=== PATIENT | female | born 1960 | race Asian ===

== ENCOUNTER 2018-07-30 13:09 | Emergency (ER) | payer MEDICAID ==
[~2018-07-30] VITALS: Ht 162.6 cm; Wt 123.4 kg
[2018-07-30 13:47] LABS: BASOPHILS # (AUTO) 0.04 x10^3/uL (0-0.1); BASOPHILS % (AUTO) 0 % (0-1); EOSINOPHILS # (AUTO) 0.26 x10^3/uL (0-0.4); EOSINOPHILS % (AUTO) 3 % (1-7); LYMPHOCYTES # (AUTO) 2.84 x10^3/uL (1-3.4); LYMPHOCYTES % (AUTO) 28 % (22-44); MD NO; MEAN CORPUSCULAR HEMOGLOBIN 28.6 pg (27.0-34.8); MEAN CORPUSCULAR HGB CONC 32.7 g/dL (32.4-35.8); MEAN CORPUSCULAR VOLUME 87.4 fL (80-100); MEAN PLATELET VOLUME 8.6 fL (7.4-10.4); MONOCYTES # (AUTO) 0.65 x10^3/uL (0.2-0.8); MONOCYTES % (AUTO) 6 % (2-9); NEUTROPHILS # (AUTO) 6.33 x10^3/uL (1.8-6.8); NEUTROPHILS % (AUTO) 63 % (42-75); PLATELET COUNT 183 x10^3/uL (130-400); RED BLOOD COUNT 5.03 x10^6/uL (3.82-5.3); RED CELL DISTRIBUTION WIDTH 13.5 % (9.6-15.2)
[2018-07-30 13:54] LABS: ALANINE AMINOTRANSFERASE 26 U/L (12-78); ALBUMIN 3.4 g/dL (3.4-5.0); ANION GAP 10 mmol/L (5-15); CALCIUM 8.9 mg/dL (8.5-10.1); CHLORIDE 107 mmol/L (98-107)
[2018-07-30 13:56] LABS: ALKALINE PHOSPHATASE 57 U/L (45-117); BILIRUBIN,TOTAL 0.4 mg/dL (0.2-1.0); TOTAL PROTEIN 7.4 g/dL (6.4-8.2)
[2018-07-30] MEDS ORDERED: METF500T17 PO (15:17)
[2018-07-30 15:42] LABS: MICROSCOPIC AUTO
[2018-07-30 15:44] LABS: CULTURE INDICATED? YES
[2018-07-30] MEDS ORDERED: MEDROXYPROGESTERONE ACETATE 150 MG/ML IM ONE (16:00)
[2018-07-30 16:39] VITALS: BP 130/76
== END 2018-07-30 16:45 | disposition home or self-care (01) ==
LOC: ED 15:12
DX: D25.0 Submucous leiomyoma of uterus (principal); N93.9 Abnormal uterine and vaginal bleeding, unspecified
CPT/HCPCS: 36415; 76856; 80053; 81001; 85025; 87086; 99285

== ENCOUNTER 2019-05-07 00:43 | Emergency (ER) | payer SELFPAY ==
[~2019-05-07] VITALS: Ht 162.6 cm; Wt 126.9 kg
[~2019-05-07 00:43] MED LIST: METF500T17 PO
[2019-05-07 01:40] LABS: BASOPHILS # (AUTO) 0.03 x10^3/uL (0-0.1); BASOPHILS % (AUTO) 0 % (0-1); EOSINOPHILS # (AUTO) 0.37 x10^3/uL (0-0.4); EOSINOPHILS % (AUTO) 5 % (1-7); LYMPHOCYTES # (AUTO) 3.26 x10^3/uL (1-3.4); LYMPHOCYTES % (AUTO) 40 % (22-44); MD NO; MEAN CORPUSCULAR HEMOGLOBIN 29.6 pg (27.0-34.8); MEAN CORPUSCULAR HGB CONC 32.9 g/dL (32.4-35.8); MEAN CORPUSCULAR VOLUME 89.9 fL (80-100); MEAN PLATELET VOLUME 8.4 fL (7.4-10.4); MONOCYTES # (AUTO) 0.57 x10^3/uL (0.2-0.8); MONOCYTES % (AUTO) 7 % (2-9); NEUTROPHILS # (AUTO) 3.91 x10^3/uL (1.8-6.8); NEUTROPHILS % (AUTO) 48 % (42-75); PLATELET COUNT 223 x10^3/uL (130-400); RED BLOOD COUNT 4.96 x10^6/uL (3.82-5.3); RED CELL DISTRIBUTION WIDTH 13.8 % (9.6-15.2)
--- NOTE | 2019-05-07 01:46 | NUR ---
PT HERE FOR SOB AND BRADICARDIA AT HOME. VSS. PT WAITING FOR RESULTS. CALL IGHT IN REACH
[2019-05-07 01:49] LABS: ALANINE AMINOTRANSFERASE 83 U/L (12-78); ALBUMIN 3.4 g/dL (3.4-5.0); ANION GAP 7 mmol/L (5-15); CHLORIDE 106 mmol/L (98-107); CREATININE 0.97 mg/dL (0.55-1.02)
[2019-05-07 01:54] LABS: ALKALINE PHOSPHATASE 66 U/L (45-117); BILIRUBIN,TOTAL 0.2 mg/dL (0.2-1.0); TOTAL PROTEIN 7.4 g/dL (6.4-8.2); TROPONIN I < 0.015 ng/mL (0.000-0.045)
--- NOTE | 2019-05-07 02:44 | NUR ---
BREAK RN-CARE ASSUMED FOR DC. PT DC'D HOME WITH UNDERSTANDING OF INSTRUCTIONS. PT AND FAMILY MEMBER ESCORTED TO DC DESK.
[2019-05-07 02:45] VITALS: BP 141/70
== END 2019-05-07 02:47 | disposition home or self-care (01) ==
LOC: ED 01:41
DX: R06.00 Dyspnea, unspecified (principal); E11.9 Type 2 diabetes mellitus without complications
CPT/HCPCS: 36415; 71046; 80053; 83880; 84484; 85025; 93005; 99284